=== PATIENT | female | born 1980 | race Caucasian/White ===

== ENCOUNTER 2024-02-15 07:50 | Outpatient (RCR) | payer OTHER, SELFPAY | END 2024-07-22 10:40 | disposition home or self-care (01) | LOC: HO.WCC 07:50 | PROVIDERS: PCP Internal Medicine; Visit Provider Surgery | DX: L98.492 Non-pressure chronic ulcer of skin of other sites with fat layer exposed (principal); T81.31XA Disruption of external operation (surgical) wound, not elsewhere classified, initial encounter; L30.9 Dermatitis, unspecified; M24.542 Contracture, left hand; Z89.021 Acquired absence of right finger(s); Z87.891 Personal history of nicotine dependence | CPT/HCPCS: 11042; 11043; 11045; 11046; 17250; 87070; 87073; 87076; 87077; 87147; 87186; 87205; 97597; 97605; 99212; 99213 ==

== ENCOUNTER 2024-07-21 10:00 | Outpatient (RCR) | payer OTHER, SELFPAY ==
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
== END 2024-07-21 10:41 | disposition home or self-care (01) ==
LOC: HO.OT 10:00
PROVIDERS: PCP Internal Medicine; Visit Provider Surgery
DX: M24.542 Contracture, left hand (principal)
CPT/HCPCS: 29130; 97035; 97110; 97140; 97166; 97760